=== PATIENT | male | born 1975 | race Two or more races ===

== ENCOUNTER 2018-03-08 04:14 | Emergency (ER) | payer MEDICAID ==
[~2018-03-08] VITALS: Ht 170.2 cm; Wt 86.2 kg
[2018-03-08 04:20] VITALS: BP 121/70
[2018-03-08] MEDS ORDERED: IPRATROPIUM BROM 0.5 MG/2.5ML INH SOL NEB ONE ×2 (04:30→07:15)
[2018-03-08] MEDS ORDERED: ALBUTEROL SULF 2.5 MG/0.5ML(0.5%) NEB SOLN NEB ONE ×2 (04:30→07:15)
[2018-03-08] MEDS ORDERED: methylPREDNISolone SOD SUCC 125 MG/2 ML VL IM ONE (07:15)
== END 2018-03-08 07:57 | disposition home or self-care (01) ==
LOC: ER 04:20
DX: J45.909 Unspecified asthma, uncomplicated (principal); F17.290 Nicotine dependence, other tobacco product, uncomplicated
CPT/HCPCS: 71045; 94640; 96372; 99284; J2930; J7611; J7644

== ENCOUNTER 2022-06-03 07:36 | Emergency (ER) | payer MEDICAID ==
[2022-06-04] MEDS ORDERED: ALBU108A5 IN (03:08)
[2022-06-04] MEDS ORDERED: PRED20TA2 PO (03:08)
[2022-06-04] MEDS ORDERED: ALBU1.257 IN (03:08)
== END 2022-06-03 08:55 | disposition left against medical advice (07) ==
LOC: ER 07:36
DX: J45.909 Unspecified asthma, uncomplicated (principal); Z53.21 Procedure and treatment not carried out due to patient leaving prior to being seen by health care provider

== ENCOUNTER 2022-06-04 00:51 | Emergency (ER) | payer MEDICAID ==
[~2022-06-04] VITALS: Ht 170.2 cm; Wt 88.6 kg
[2022-06-04] MEDS ORDERED: ALBUTEROL MEDNEB 2.5 mg/3ml NEB ONE (01:22)
[2022-06-04 01:24] VITALS: BP 134/95
[2022-06-04] MEDS ORDERED: IPRATROPIUM BROM 0.5 MG/2.5ML INH SOL NEB ONE ×2 (01:30→02:15)
[2022-06-04] MEDS ORDERED: ALBUTEROL SULF 2.5 MG/0.5ML(0.5%) NEB SOLN NEB ONE ×2 (01:30→02:15)
[2022-06-04] MEDS ORDERED: DexAMETHasone SOD PHOS 10MG/1ML VIAL INJ IM ONE (01:45)
[2022-06-04 01:54] LABS: Basophils # (auto) 0.1 10 ^3/uL (0-0.2); Basophils % (auto) 0.8 % (0.0-2.0); Eosinophils # (auto) 1.4 10 ^3/uL (0-0.8); Hematocrit 41.1 % (41.0-53.0); Hemoglobin 13.7 g/dL (13.5-17.5); Lymphocytes % (auto) 26.5 % (10.0-50.0); Mean Corpuscular Hemoglobin 28.6 pg (28.0-32.0); Mean Corpuscular Hgb Conc. 33.4 g/dL (32.0-36.0); Mean Corpuscular Volume 85.8 fL (80.0-100.0); Monocytes % (auto) 8.9 % (0.0-12.0); Neutrophils # (auto) 5.9 10 ^3/uL (1.6-8.6); Neutrophils % (auto) 51.8 % (37.0-80.0); Nucleated Red Blood Cells % 0.1 %; Red Blood Cells 4.79 10^6/uL (4.5-5.90); Red Cell Distribution Width 13.9 % (11.8-14.3); White Blood Cell 11.3 10^3/uL (4.4-10.8)
[2022-06-04 02:09] LABS: Albumin 3.7 g/dL (3.4-5.0); BUN/Creatinine Ratio 20.9; Calcium 8.5 mg/dL (8.5-10.1); Potassium 3.9 mmol/L (3.5-5.1)
[2022-06-04 02:11] LABS: Bilirubin, Total 0.2 mg/dL (0.2-1.0); Total Protein 6.6 g/dL (6.4-8.2)
[2022-06-04] MEDS ORDERED: ALBU1.257 IN (03:08)
[2022-06-04] MEDS ORDERED: ALBU108A5 IN (03:08)
[2022-06-04] MEDS ORDERED: PRED20TA2 PO (03:08)
== END 2022-06-04 03:40 | disposition home or self-care (01) ==
LOC: ER 00:55
DX: J45.901 Unspecified asthma with (acute) exacerbation (principal)
CPT/HCPCS: 36415; 71045; 80053; 84484; 85025; 94640; 96372; 99284; J1100; J7644